=== PATIENT | female | born 1995 | race American Indian/Alaskan Native ===

== ENCOUNTER 2022-05-09 23:22 | Observation (INO) | payer BC ==
[2022-05-10] MEDS ORDERED: Sodium Chloride 0.9% 10 ML Syringe FLUSH PRN (02:22)
[2022-05-10] MEDS ORDERED: Sodium Chloride 0.9% 2.5 ML Syringe FLUSH PRN (02:22)
[2022-05-10] MEDS ORDERED: Sodium Chloride 0.9% 1,000 ML IV ONE (02:22)
[2022-05-10 04:28] LABS: POTASSIUM,K 3.8 mmol/L (3.5-5.1)
[2022-05-10] MEDS ORDERED: Morphine 4 MG/ML VIAL IVPUSH PRN (06:10)
[2022-05-10] MEDS ORDERED: HYDROmorphone 1 MG/ML Syringe IVPUSH PRN (06:10)
[2022-05-10] MEDS ORDERED: Metoclopramide 10 MG/2 ML SDV IVPUSH PRN (06:10)
[2022-05-10] MEDS ORDERED: Naloxone 0.4 MG/ML SDV IVPUSH PRN (06:10)
[2022-05-10] MEDS ORDERED: fentaNYL 50 MCG/ML SDV IVPUSH PRN (06:10)
[2022-05-10] MEDS ORDERED: Ondansetron 4 MG/2 ML SDV IVPUSH PRN (06:10)
[2022-05-10] MEDS ORDERED: Albuterol 0.083% 2.5 MG/3 ML Neb Soln NEB PRN (06:10)
[2022-05-10] MEDS ORDERED: Famotidine 20 MG/2 ML SDV ONE (06:16)
[2022-05-10] MEDS ORDERED: Sugammadex Sodium 200 MG/2 ML VIAL ONE (06:21)
[2022-05-10] MEDS ORDERED: Midazolam 1 MG/ML 2 ML SDV ONE (06:21)
[2022-05-10] MEDS ORDERED: Ondansetron 4 MG/2 ML SDV ONE (06:21)
[2022-05-10] MEDS ORDERED: fentaNYL 100 MCG/2 ML SDV ONE (06:21)
[2022-05-10] MEDS ORDERED: Lidocaine 2% 5 ML SDV ONE (06:21)
[2022-05-10] MEDS ORDERED: Dexamethasone 4 MG/ML 5 ML MDV ONE (06:21)
[2022-05-10] MEDS ORDERED: Metoclopramide 10 MG/2 ML SDV ONE (06:21)
[2022-05-10] MEDS ORDERED: Propofol 200 MG/20 ML SDV ONE (06:21)
[2022-05-10] MEDS ORDERED: Rocuronium Bromide 50 MG/5 ML Syringe ONE (06:21)
[2022-05-10] MEDS ORDERED: Octyl 2-Cyanoacrylate 1 g/1 mL 1 APPLIC PEN ONE (06:38)
[2022-05-10] MEDS ORDERED: Bupivacaine 0.5% 30 ML SDV ONE (06:38)
[2022-05-10] MEDS ORDERED: Ketorolac 30 MG/ML SDV ONE (07:52)
[2022-05-10] MEDS ORDERED: Meperidine PF 25 MG/ML SDV ONE (08:02)
== END 2022-05-10 12:00 | disposition home or self-care (01) ==
LOC: MW.ED 23:22 → MW.OB 05-10 02:44
PROVIDERS: ADMIT Obstetrics & Gynecology; ATTEND Obstetrics & Gynecology
DX: D28.2 Benign neoplasm of uterine tubes and ligaments (principal); O00.102 Left tubal pregnancy without intrauterine pregnancy; Z90.49 Acquired absence of other specified parts of digestive tract
CPT/HCPCS: 36415; 58301; 58661; 76817; 80053; 81001; 84702; 85025; 86850; 86900; 86901; 96360; 99285; J0131; J1100; J1885; J2250; J2405; J2704; J2765; J3010; J3490; J7030; 00840; 99291